=== PATIENT | male | born 2005 | race Caucasian/White ===

== ENCOUNTER 2024-08-03 12:39 | Emergency (ER) | payer OTHER ==
[~2024-08-03] VITALS: Ht 177.8 cm; Wt 87.6 kg
[2024-08-03 15:12] VITALS: BP 140/64; TEMP 97.3; O2SAT 97
== END 2024-08-03 18:16 | disposition home or self-care (01) ==
LOC: M ED 12:39
DX: B30.9 Viral conjunctivitis, unspecified (principal)

== ENCOUNTER 2025-03-02 21:30 | Emergency (ER) | payer OTHER ==
[~2025-03-02] VITALS: Ht 177.8 cm; Wt 96.1 kg
[2025-03-03 01:45] VITALS: TEMP 96.2
[2025-03-03] MEDS ORDERED: MAGICMW SSP (04:24)
[2025-03-03 04:34] VITALS: BP 109/57; O2SAT 99
[2025-03-03] MEDS: LIDOCAINE VISCOUS 2% SOLN 15 ML UDC SS ONE (04:34)
[2025-03-04] MEDS ORDERED: MAGICMW SSP (11:51)
== END 2025-03-03 04:43 | disposition home or self-care (01) ==
LOC: M ED 21:30
DX: J02.9 Acute pharyngitis, unspecified (principal); Z79.2 Long term (current) use of antibiotics